=== PATIENT | female | born 1975 | race Caucasian/White ===

== ENCOUNTER → 2019-05-26 | Outpatient (CLI) | payer OTHER | END | disposition home or self-care (01) | LOC: LAB EV 16:45 → LAB SHORT 16:45 | DX: N76.0 Acute vaginitis (principal) | CPT/HCPCS: 87086 ==

== ENCOUNTER → 2019-06-04 | Outpatient (CLI) | payer OTHER | END | disposition home or self-care (01) | LOC: LAB EV 09:14 → LAB SHORT 09:14 | DX: N39.0 Urinary tract infection, site not specified (principal) | CPT/HCPCS: 87086 ==

== ENCOUNTER → 2019-09-27 | Outpatient (CLI) | payer SELFPAY ==
[2019-09-27 17:33] LABS: BASOPHILS ABSOLUTE AUTO 0.04 K/mm3 (0.00-0.23); BASOPHILS PERCENT AUTO 1 % (0-2); EOSINOPHILS ABSOLUTE AUTO 0.28 K/mm3 (0.00-0.68); EOSINOPHILS PERCENT AUTO 4 % (0-6); Hematocrit 41.4 % (33.0-51.0); Hemoglobin 14.2 g/dL (11.5-16.0); IMMATURE GRAN ABSOLUTE AUTO 0.01 K/mm3 (0.00-0.10); IMMATURE GRAN PERCENT AUTO 0 % (0-1); LYMPHOCYTES ABSOLUTE AUTO 1.78 K/mm3 (0.84-5.20); LYMPHOCYTES PERCENT AUTO 28 % (21-46); MONOCYTES ABSOLUTE AUTO 0.41 K/mm3 (0.16-1.47); MONOCYTES PERCENT AUTO 7 % (4-13); Mean Corpuscular HGB 31.3 pg (26.0-34.0); Mean Corpuscular HGB Conc 34.3 g/dL (31.5-36.5); Mean Corpuscular Volume 91 fL (80-100); Mean Platelet Volume 10.5 fL (9.1-12.4); NEUTROPHILS ABSOLUTE AUTO 3.82 K/mm3 (1.96-9.15); NEUTROPHILS PERCENT AUTO 60 % (41-73); Platelet Count 236 K/mm3 (150-400); RDW Coefficient Variation 12.5 % (11.7-14.2); RDW Standard Deviation 41.5 fL (35.1-46.3); Red Blood Cell Count 4.54 M/mm3 (3.80-5.20); White Blood Cell Count 6.34 K/mm3 (4.00-11.30)
[2019-09-27 17:53] LABS: Alanine Aminotransfer (ALT/SGP 19 U/L (12-78); Albumin/Globulin Ratio 1.3 (0.8-1.8); Alk Phos 52 U/L (40-126); Anion Gap 7 mmol/L (6-16); Aspartate Aminotrans (AST/SGOT 14 U/L (12-37); Bilirubin, Total 0.6 mg/dL (0.1-1.0); Blood Urea Nitrogen 17 mg/dL (8-24); CO2, Blood 28 mmol/L (21-32); Chloride, Blood 104 mmol/L (98-108); Creatinine, Blood 0.68 mg/dL (0.40-1.00); Globulin, Blood 3.2 g/dL (2.2-4.0); Glomerular Filtration Rate >60 (60-); Glucose, Blood 91 mg/dL (70-99); Potassium, Blood 4.2 mmol/L (3.5-5.5); Sodium, Blood 139 mmol/L (136-145); Thyroid Stimulating Hormone 1.424 uIU/mL (0.360-4.800); Total Protein, Blood 7.2 g/dL (6.4-8.2)
== END | disposition home or self-care (01) ==
LOC: LAB SHORT 17:29 → LAB EV 17:29
PROVIDERS: Physician Assistant
DX: R53.83 Other fatigue (principal); R42 Dizziness and giddiness
CPT/HCPCS: 80053; 84443; 85025

== ENCOUNTER → 2019-10-06 | Outpatient (CLI) | payer BC ==
[2019-10-06 12:51] LABS: Alanine Aminotransfer (ALT/SGP 23 U/L (12-78); Albumin, Blood 3.9 g/dL (3.4-5.0); Albumin/Globulin Ratio 1.2 (0.8-1.8); Alk Phos 51 U/L (40-126); Anion Gap 7 mmol/L (6-16); Aspartate Aminotrans (AST/SGOT 19 U/L (12-37); Bilirubin, Total 0.5 mg/dL (0.1-1.0); Blood Urea Nitrogen 8 mg/dL (8-24); Bun/Creatinine Ratio 11.8 (12.0-20.0); CO2, Blood 26 mmol/L (21-32); Chloride, Blood 106 mmol/L (98-108); Creatinine, Blood 0.68 mg/dL (0.40-1.00); Globulin, Blood 3.3 g/dL (2.2-4.0); Glomerular Filtration Rate >60 (60-); Glucose, Blood 87 mg/dL (70-99); Sodium, Blood 139 mmol/L (136-145); Total Protein, Blood 7.2 g/dL (6.4-8.2)
[2019-10-10 13:07] LABS: VITAMIN E(ALPHA TOCOPHEROL) 8.2 mg/L (7.0-25.1); VITAMIN E(GAMMA TOCOPHEROL) 1.6 mg/L (0.5-5.5)
== END | disposition home or self-care (01) ==
LOC: LAB SHORT 12:34 → LAB EV 12:34
PROVIDERS: Physician Assistant
DX: Z48.815 Encounter for surgical aftercare following surgery on the digestive system (principal); Z98.84 Bariatric surgery status
CPT/HCPCS: 80053; 82306; 82607; 82728; 83540; 83550

== ENCOUNTER → 2019-11-29 | Outpatient (CLI) | payer BC | END | disposition home or self-care (01) | LOC: LAB SHORT 18:00 → LAB EV 18:00 | DX: R30.9 Painful micturition, unspecified (principal) | CPT/HCPCS: 87086 ==

== ENCOUNTER 2020-08-16 19:26 | Emergency (ER) | payer OTHER, BC ==
[~2020-08-16] VITALS: Ht 172.7 cm; Wt 90.7 kg
[2020-08-16] MEDS ORDERED: HYDROCODONE-AC1 EAC7 PO (19:37)
[2020-08-16] MEDS ORDERED: Methocarbamol750 MG PO (19:37)
[2020-08-16] MEDS ORDERED: NEURONTIN300 MG PO (19:37)
== END 2020-08-16 21:49 | disposition home or self-care (01) ==
LOC: ER 19:26
DX: S06.0X0A Concussion without loss of consciousness, initial encounter (principal); W22.03XA Walked into furniture, initial encounter; Y92.89 Other specified places as the place of occurrence of the external cause; Y99.0 Civilian activity done for income or pay
CPT/HCPCS: 70450; 72125; 99284-25

== ENCOUNTER → 2022-12-20 | Outpatient (CLI) | payer BC ==
[~2022-12-20] MED LIST: HYDROCODONE-AC1 EAC7 PO; Methocarbamol750 MG PO; NEURONTIN300 MG PO
[2022-12-20 15:18] LABS: BASOPHILS ABSOLUTE AUTO 0.06 K/mm3 (0.00-0.23); BASOPHILS PERCENT AUTO 1 % (0-2); EOSINOPHILS ABSOLUTE AUTO 0.27 K/mm3 (0.00-0.68); EOSINOPHILS PERCENT AUTO 3 % (0-6); Hematocrit 39.3 % (33.0-51.0); Hemoglobin 12.9 g/dL (11.5-16.0); IMMATURE GRAN ABSOLUTE AUTO 0.01 K/mm3 (0.00-0.10); IMMATURE GRAN PERCENT AUTO 0 % (0-1); LYMPHOCYTES ABSOLUTE AUTO 1.75 K/mm3 (0.84-5.20); LYMPHOCYTES PERCENT AUTO 21 % (21-46); MONOCYTES PERCENT AUTO 6 % (4-13); Mean Corpuscular HGB Conc 32.8 g/dL (31.5-36.5); Mean Corpuscular Volume 85 fL (80-100); Mean Platelet Volume 10.6 fL (9.1-12.4); NEUTROPHILS ABSOLUTE AUTO 5.62 K/mm3 (1.96-9.15); NEUTROPHILS PERCENT AUTO 69 % (41-73); Platelet Count 262 K/mm3 (150-400); RDW Coefficient Variation 13.2 % (11.7-14.2); RDW Standard Deviation 40.9 fL (35.1-46.3); Red Blood Cell Count 4.61 M/mm3 (3.80-5.20); White Blood Cell Count 8.21 K/mm3 (4.00-11.30)
[2022-12-20 15:31] LABS: Albumin/Globulin Ratio 1.2 (0.8-1.8); Bilirubin, Total 0.5 mg/dL (0.1-1.0); Bun/Creatinine Ratio 11.2 (12.0-20.0); Calcium, Blood 9.3 mg/dL (8.5-10.1); Creatinine, Blood 0.89 mg/dL (0.40-1.00); Globulin, Blood 3.4 g/dL (2.2-4.0); Potassium, Blood 4.4 mmol/L (3.5-5.5); Total Protein, Blood 7.4 g/dL (6.4-8.2)
== END ==
LOC: LAB SHORT 15:14
PROVIDERS: Chiropractor
DX: R10.9 Unspecified abdominal pain (principal); N39.0 Urinary tract infection, site not specified
CPT/HCPCS: 80053; 85025; 87086

== ENCOUNTER → 2022-12-31 | Outpatient (CLI) | payer BC ==
[2023-01-01 11:03] LABS: G. vaginalis (DNA Probe) Negative (NEGATIVE); T. vaginalis (DNA Probe) Negative (NEGATIVE)
[2023-01-01 11:04] LABS: Candida species (DNA Probe) Positive (NEGATIVE)
== END | disposition home or self-care (01) ==
LOC: LAB SHORT 17:26 → LAB 17:26
PROVIDERS: Advanced Practice Midwife
DX: N76.0 Acute vaginitis (principal)
CPT/HCPCS: 87480; 87510; 87660

== ENCOUNTER → 2023-03-06 | Outpatient (CLI) | payer BC | LOC: LAB SHORT 17:36 → LAB 17:36 | DX: N39.0 Urinary tract infection, site not specified (principal) | CPT/HCPCS: 87086 ==

== ENCOUNTER 2023-08-22 19:36 | Emergency (ER) | payer BC ==
[~2023-08-22] VITALS: Ht 175.3 cm; Wt 95.2 kg
[2023-08-22 19:57] VITALS: BP 124/62
[2023-08-22 20:54] LABS: BASOPHILS ABSOLUTE AUTO 0.03 K/mm3 (0.00-0.23); BASOPHILS PERCENT AUTO 0 % (0-2); EOSINOPHILS ABSOLUTE AUTO 0.18 K/mm3 (0.00-0.68); EOSINOPHILS PERCENT AUTO 3 % (0-6); Hematocrit 38.2 % (33.0-51.0); IMMATURE GRAN ABSOLUTE AUTO 0.01 K/mm3 (0.00-0.10); IMMATURE GRAN PERCENT AUTO 0 % (0-1); LYMPHOCYTES ABSOLUTE AUTO 1.64 K/mm3 (0.84-5.20); LYMPHOCYTES PERCENT AUTO 23 % (21-46); MONOCYTES ABSOLUTE AUTO 0.53 K/mm3 (0.16-1.47); MONOCYTES PERCENT AUTO 8 % (4-13); Mean Corpuscular HGB 27.7 pg (26.0-34.0); Mean Corpuscular HGB Conc 31.4 g/dL (31.5-36.5); Mean Corpuscular Volume 88 fL (80-100); Mean Platelet Volume 10.5 fL (9.1-12.4); NEUTROPHILS ABSOLUTE AUTO 4.62 K/mm3 (1.96-9.15); NEUTROPHILS PERCENT AUTO 66 % (41-73); Platelet Count 251 K/mm3 (150-400); RDW Coefficient Variation 14.1 % (11.7-14.2); RDW Standard Deviation 45.3 fL (35.1-46.3); Red Blood Cell Count 4.33 M/mm3 (3.80-5.20); White Blood Cell Count 7.01 K/mm3 (4.00-11.30)
[2023-08-22 20:59] LABS: Albumin, Blood 3.9 g/dL (3.4-5.0); Albumin/Globulin Ratio 1.2 (0.8-1.8); Bilirubin, Total 0.4 mg/dL (0.1-1.0); Bun/Creatinine Ratio 23.5 (12.0-20.0); Calcium, Blood 8.7 mg/dL (8.5-10.1); Creatinine, Blood 0.72 mg/dL (0.40-1.00); Globulin, Blood 3.2 g/dL (2.2-4.0); Potassium, Blood 4.2 mmol/L (3.5-5.5); Total Protein, Blood 7.1 g/dL (6.4-8.2)
[2023-08-22 23:03] LABS: Source, Urine Clean Catch
[2023-08-22 23:05] LABS: Bilirubin, Urine Neg (Neg); Blood, Urine 1+ (Neg); Glucose Qualitative, Urine Neg (Neg); Ketones, Urine Neg (Neg); Leukocyte Esterase, Urine Neg (Neg); Nitrite, Urine Neg (Neg); Protein, Urine 1+ (Neg); Urobilinogen, Urine 1+ (Normal)
[2023-08-22 23:08] LABS: Appearance, Urine Clear (Clear); Color, Urine Yellow (P-Yellow)
[2023-08-22 23:13] LABS: Bacteria Not Seen /hpf; White Blood Cells, Urine Not Seen /hpf (0-5)
[2023-08-22 23:14] LABS: Squamous Epithelial Cells Rare /hpf (Few)
[2023-08-22] MEDS ORDERED: PHENA200 PO (23:44)
== END 2023-08-23 00:04 | disposition home or self-care (01) ==
LOC: ER 19:36
PROVIDERS: Emergency Medicine; Physician Assistant
DX: R10.11 Right upper quadrant pain (principal); R39.11 Hesitancy of micturition
CPT/HCPCS: 51798; 74177; 80053; 81001; 85025; 96374-59; 96375; 99284-25; A9270; J1170; J1885; J2405; Q9967

== ENCOUNTER → 2024-10-15 | Outpatient (CLI) | payer OTHER ==
[~2024-10-15] MED LIST changes: +PHENA200 PO
[2024-10-16 10:38] LABS: Influenza A, PCR NEGATIVE (NEGATIVE); Influenza B, PCR NEGATIVE (NEGATIVE); Resp Syncytial Virus, PCR NEGATIVE (NEGATIVE); SARS-Cov-2 (COVID-19) PCR, MMC NEGATIVE (NEGATIVE)
== END ==
LOC: LAB 11:00 → LAB SHORT 11:00
PROVIDERS: Nurse Practitioner Family
DX: J01.90 Acute sinusitis, unspecified (principal); R11.0 Nausea
CPT/HCPCS: 0241U

== ENCOUNTER 2024-10-30 02:31 | Emergency (ER) | payer OTHER ==
[~2024-10-30] VITALS: Ht 175.3 cm; Wt 95.2 kg
[2024-10-30] MEDS ORDERED: Albuterol 2.5 MG/3 ML VIAL INH SCH (02:40)
[2024-10-30] MEDS ORDERED: Morphine Sulfate 4 MG/1 ML Injection IV ONE (02:40)
[2024-10-30 03:03] LABS: Base Excess Venous 2.1 mmol/L; Bicarbonate Venous 25.4 mmol/L (24.0-30.0); PCO2 Venous 38.6 mmHg (38-42); pH Blood Venous 7.44 (7.34-7.37)
[2024-10-30] MEDS ORDERED: HYDROmorphone HCl/Pf 1MG SYR IV PRN (03:05)
[2024-10-30 03:18] LABS: BASOPHILS ABSOLUTE AUTO 0.01 K/mm3 (0.00-0.23); BASOPHILS PERCENT AUTO 0 % (0-2); EOSINOPHILS ABSOLUTE AUTO 0.03 K/mm3 (0.00-0.68); EOSINOPHILS PERCENT AUTO 0 % (0-6); Hematocrit 38.5 % (33.0-51.0); Hemoglobin 11.6 g/dL (11.5-16.0); IMMATURE GRAN ABSOLUTE AUTO 0.04 K/mm3 (0.00-0.10); IMMATURE GRAN PERCENT AUTO 0 % (0-1); LYMPHOCYTES ABSOLUTE AUTO 2.05 K/mm3 (0.84-5.20); LYMPHOCYTES PERCENT AUTO 19 % (21-46); MONOCYTES ABSOLUTE AUTO 0.53 K/mm3 (0.16-1.47); MONOCYTES PERCENT AUTO 5 % (4-13); Mean Corpuscular HGB 23.2 pg (26.0-34.0); Mean Corpuscular HGB Conc 30.1 g/dL (31.5-36.5); Mean Corpuscular Volume 77 fL (80-100); Mean Platelet Volume 10.2 fL (9.1-12.4); NEUTROPHILS ABSOLUTE AUTO 8.22 K/mm3 (1.96-9.15); NEUTROPHILS PERCENT AUTO 76 % (41-73); Platelet Count 339 K/mm3 (150-400); RDW Coefficient Variation 14.9 % (11.7-14.2); RDW Standard Deviation 41.4 fL (35.1-46.3); Red Blood Cell Count 4.99 M/mm3 (3.80-5.20); White Blood Cell Count 10.88 K/mm3 (4.00-11.30)
[2024-10-30 03:40] LABS: Albumin, Blood 3.8 g/dL (3.4-5.0); Albumin/Globulin Ratio 1.1 (0.8-1.8); Bun/Creatinine Ratio 23.4 (12.0-20.0); Calcium, Blood 9.2 mg/dL (8.5-10.1); Creatinine, Blood 0.68 mg/dL (0.40-1.00); Globulin, Blood 3.6 g/dL (2.2-4.0); Potassium, Blood 3.3 mmol/L (3.5-5.5); Total Protein, Blood 7.4 g/dL (6.4-8.2)
[2024-10-30] MEDS ORDERED: Ondansetron HCl 2 MG / ML 2ML Vial IV ONE (04:25)
[2024-10-30] MEDS ORDERED: Pantoprazole Sodium 40 MG Injection IV ONE (05:25)
[2024-10-30] MEDS ORDERED: Mag Hydrox/AL Hydrox/Simeth 30 ML UDC PO ONE (05:25)
[2024-10-30] MEDS ORDERED: Lidocaine 2% Viscous Soln 15 ML UDC PO ONE (05:25)
[2024-10-30 05:50] LABS: Source, Urine Clean Catch
[2024-10-30 05:58] LABS: Bilirubin, Urine Neg (Neg); Blood, Urine 3+ (Neg); Glucose Qualitative, Urine Neg (Neg); Ketones, Urine 1+ (Neg); Leukocyte Esterase, Urine Neg (Neg); Nitrite, Urine Neg (Neg); Protein, Urine 2+ (Neg); Urobilinogen, Urine 1+ (Normal)
[2024-10-30 06:05] LABS: Color, Urine Yellow (P-Yellow)
[2024-10-30 06:07] LABS: Appearance, Urine Clear (Clear)
[2024-10-30 06:08] LABS: Bacteria Few /hpf; Red Blood Cells, Urine 0-2 /hpf (0-2); Squamous Epithelial Cells Many /hpf (Few); White Blood Cells, Urine 0-2 /hpf (0-5)
[2024-10-30 06:09] LABS: Calcium Oxalate Crystals Mod /hpf
[2024-10-30] MEDS ORDERED: DICY20 PO (10:35)
[2024-10-30] MEDS ORDERED: METO10 PO (10:35)
[2024-10-30 10:47] VITALS: BP 115/55
== END 2024-10-30 10:47 | disposition home or self-care (01) ==
LOC: ER 02:31
PROVIDERS: Emergency Medicine
DX: R10.10 Upper abdominal pain, unspecified (principal); Z79.891 Long term (current) use of opiate analgesic; Z79.899 Other long term (current) drug therapy
CPT/HCPCS: 71045; 71260; 74177; 80053; 81001; 82803; 83605; 83690; 84484; 85025; 94640; 94664; 96374-59; 96375; 96376; 99285-25; A9270; J1171; J2270; J2405; J2470; Q9967

== ENCOUNTER 2024-11-23 01:41 | Observation (INO) | payer OTHER ==
[~2024-11-23 01:41] MED LIST changes: +DICY20 PO; +METO10 PO
[2024-11-23] MEDS ORDERED: NS 1,000 ML IV SCH (01:55)
[2024-11-23] MEDS ORDERED: Ketorolac Tromethamine 30mg Vial IV ONE (01:55)
[2024-11-23] MEDS ORDERED: Ondansetron HCl 2 MG / ML 2ML Vial IV ONE (01:55)
[2024-11-23 02:00] LABS: BASOPHILS ABSOLUTE AUTO 0.04 K/mm3 (0.00-0.23); BASOPHILS PERCENT AUTO 0 % (0-2); EOSINOPHILS ABSOLUTE AUTO 0.24 K/mm3 (0.00-0.68); EOSINOPHILS PERCENT AUTO 3 % (0-6); Hematocrit 36.4 % (33.0-51.0); Hemoglobin 10.9 g/dL (11.5-16.0); IMMATURE GRAN ABSOLUTE AUTO 0.03 K/mm3 (0.00-0.10); IMMATURE GRAN PERCENT AUTO 0 % (0-1); LYMPHOCYTES ABSOLUTE AUTO 0.96 K/mm3 (0.84-5.20); LYMPHOCYTES PERCENT AUTO 10 % (21-46); MONOCYTES ABSOLUTE AUTO 0.43 K/mm3 (0.16-1.47); MONOCYTES PERCENT AUTO 5 % (4-13); Mean Corpuscular HGB Conc 29.9 g/dL (31.5-36.5); Mean Corpuscular Volume 77 fL (80-100); Mean Platelet Volume 9.5 fL (9.1-12.4); NEUTROPHILS ABSOLUTE AUTO 7.87 K/mm3 (1.96-9.15); NEUTROPHILS PERCENT AUTO 82 % (41-73); Platelet Count 343 K/mm3 (150-400); RDW Coefficient Variation 16.1 % (11.7-14.2); RDW Standard Deviation 45.4 fL (35.1-46.3); Red Blood Cell Count 4.74 M/mm3 (3.80-5.20); White Blood Cell Count 9.57 K/mm3 (4.00-11.30)
[2024-11-23 02:20] LABS: Albumin, Blood 3.7 g/dL (3.4-5.0); Albumin/Globulin Ratio 1.1 (0.8-1.8); Bilirubin, Total 0.6 mg/dL (0.1-1.0); Calcium, Blood 8.8 mg/dL (8.5-10.1); Creatinine, Blood 0.87 mg/dL (0.40-1.00); Globulin, Blood 3.5 g/dL (2.2-4.0); Total Protein, Blood 7.2 g/dL (6.4-8.2)
[2024-11-23] MEDS ORDERED: FentaNYL Citrate 50 MCG/ML 2 ML Injection IV PRN (02:20)
[2024-11-23 02:41] LABS: Source, Urine Clean Catch
[2024-11-23 02:46] LABS: Bilirubin, Urine Neg (Neg); Blood, Urine 5+ (Neg); Glucose Qualitative, Urine Neg (Neg); Ketones, Urine Neg (Neg); Leukocyte Esterase, Urine Neg (Neg); Nitrite, Urine Neg (Neg); Protein, Urine 2+ (Neg); Urobilinogen, Urine NORM (Normal)
[2024-11-23 02:57] LABS: Appearance, Urine Hazy (Clear); Color, Urine Yellow (P-Yellow)
[2024-11-23 02:58] LABS: Amorphous Light (0-Heavy); Bacteria Rare /hpf; Calcium Oxalate Crystals Mod /hpf; Red Blood Cells, Urine TNTC /hpf (0-2); Squamous Epithelial Cells Few /hpf (Few); White Blood Cells, Urine 0-2 /hpf (0-5)
[2024-11-23] MEDS ORDERED: HYDROmorphone HCl/Pf 1MG SYR IV PRN (03:10)
[2024-11-23] MEDS ORDERED: Naloxone HCl 0.4MG / ML 1ML Vial IV PRN (04:35)
[2024-11-23] MEDS ORDERED: Ondansetron HCl 2 MG / ML 2ML Vial IV PRN (04:35)
[2024-11-23] MEDS ORDERED: FLU VACC TS2024-25(6MOS UP)/PF 45 MCG/0.5 ML SYRINGE IM ONE (04:35)
[2024-11-23] MEDS ORDERED: Acetaminophen 325 MG TABLET PO PRN (04:40)
[2024-11-23] MEDS ORDERED: DEXTROAMPHETAMI10 M5 PO (05:10)
[2024-11-23] MEDS ORDERED: TAMSULOSIN HCL0.4 M1 PO (05:11)
[2024-11-23] MEDS ORDERED: TRAZ50 PO (05:13)
[2024-11-23] MEDS ORDERED: Ketorolac Tromethamine 15mg Vial IV PRN (05:35)
[2024-11-23 06:00] LABS: BASOPHILS ABSOLUTE AUTO 0.02 K/mm3 (0.00-0.23); BASOPHILS PERCENT AUTO 0 % (0-2); EOSINOPHILS ABSOLUTE AUTO 0.02 K/mm3 (0.00-0.68); EOSINOPHILS PERCENT AUTO 0 % (0-6); Hemoglobin 9.3 g/dL (11.5-16.0); IMMATURE GRAN ABSOLUTE AUTO 0.04 K/mm3 (0.00-0.10); IMMATURE GRAN PERCENT AUTO 1 % (0-1); LYMPHOCYTES ABSOLUTE AUTO 0.81 K/mm3 (0.84-5.20); LYMPHOCYTES PERCENT AUTO 9 % (21-46); MONOCYTES PERCENT AUTO 3 % (4-13); Mean Corpuscular HGB 23.1 pg (26.0-34.0); Mean Corpuscular Volume 77 fL (80-100); Mean Platelet Volume 9.9 fL (9.1-12.4); NEUTROPHILS ABSOLUTE AUTO 7.62 K/mm3 (1.96-9.15); NEUTROPHILS PERCENT AUTO 87 % (41-73); Platelet Count 274 K/mm3 (150-400); RDW Coefficient Variation 16.3 % (11.7-14.2); RDW Standard Deviation 45.5 fL (35.1-46.3); Red Blood Cell Count 4.02 M/mm3 (3.80-5.20); White Blood Cell Count 8.81 K/mm3 (4.00-11.30)
[2024-11-23 06:22] LABS: Albumin, Blood 3.2 g/dL (3.4-5.0); Albumin/Globulin Ratio 1.1 (0.8-1.8); Bilirubin, Total 0.4 mg/dL (0.1-1.0); Bun/Creatinine Ratio 15.9 (12.0-20.0); Calcium, Blood 8.3 mg/dL (8.5-10.1); Creatinine, Blood 0.75 mg/dL (0.40-1.00); Globulin, Blood 2.9 g/dL (2.2-4.0); Magnesium, Blood 1.9 mg/dL (1.6-2.4); Potassium, Blood 4.1 mmol/L (3.5-5.5); Total Protein, Blood 6.1 g/dL (6.4-8.2)
[2024-11-23 06:26] LABS: Percent Saturation 3.3 % (15.0-50.0)
[2024-11-23 07:53] VITALS: BP 112/78
[2024-11-23] MEDS ORDERED: HYDROCODONE-AC1 EAC7 PO (08:08)
[2024-11-23] MEDS ORDERED: CYCL10 PO (08:12)
[2024-11-23] MEDS ORDERED: Tamsulosin HCl 0.4 MG Cap PO SCH (09:00)
[2024-11-23] MEDS ORDERED: Docusate Sodium 100 MG Cap PO SCH (09:00)
[2024-11-23 16:54] VITALS: BP 113/77
--- NOTE | 2024-11-23 18:06 | NUR ---
SHIFT SUMMARY: SINCE ARRIVAL TO PCU THIS AM PT HAS HAD NO SIGNIFICANT EVENTS HAPPEN. PT WAS MEDICATED FOR PAIN 2 TIMES OTHERWISE HAS SLEPT MOST OF THE SHIFT. PT HAS BEEN ABLE TO GET UP TO THE BATHROOM INDEPENDENTLY ALL DAY. HAS REMAINED A&OX4. FOLLOWS COMMANDS AND MAKES NEED KNOWN TO STAFF. WILL CONTINUE TO CARE FOR PT TILL END OF SHIFT.
--- NOTE | 2024-11-23 18:29 | NUR ---
AMA: PT NOTIFIED THIS RN THAT SHE IS FEELING BETTER AND THAT SHE WOULD LIKE TO GO HOME. PROVIDER NOTIIED AND TOLD THIS RN THAT PT WOULD HAVE TO LEAVE AMA OR WITH WILL THE MORNING WHEN HER PROVIDER IS HERE. PT GIVEN HER OPTIONS AND INFORMED ABOUT CONS OF LEAVING AMA. PT WOULD STILL LIKE TO LEAVE. AMA FORM SIGNED BY PT. BELONGING COLLECTED AND TAKEN HOME WITH PT.
[2024-11-24] MEDS ORDERED: Enoxaparin 40 MG/0.4 ML SYR SC SCH (09:00)
== END 2024-11-23 18:45 | disposition left against medical advice (07) ==
LOC: ER 01:41 → PCU 01:42 → ERHOLD 01:42 → PCU 07:43
PROVIDERS: Emergency Medicine; ADMIT Student in an Organized Health Care Education/Training Program
DX: N13.2 Hydronephrosis with renal and ureteral calculous obstruction (principal); D50.9 Iron deficiency anemia, unspecified; E16.2 Hypoglycemia, unspecified; Z79.899 Other long term (current) drug therapy; Z98.84 Bariatric surgery status
CPT/HCPCS: 74177; 80053; 81001; 82728; 83540; 83550; 83690; 83735; 85025; 96361; 96374-59; 96375; 96376; 99285-25; A9270; G0378; J1171; J1885; J2405; J3010; J7030; Q9967

== ENCOUNTER → 2025-03-10 | Outpatient (CLI) | payer OTHER ==
[~2025-03-10] MED LIST changes: +CEFPODOXIME PR100 MG PO; +CYCL10 PO; +DEXTROAMPHETAMI10 M5 PO; +DOCU100 PO; +FERSU300 PO; +Nitrofurantoin100 M1 PO; +OMEP20ER PO; +TAMSULOSIN HCL0.4 M1 PO; +TRAZ50 PO; +VALA500 PO; +VITAMIN D31000 UNI1 PO; +[UNRECOGNIZED DRUG - CODE] PO
[2025-03-10 15:23] LABS: Source, Urine Clean Catch
[2025-03-10 16:54] LABS: Color, Urine Amber (P-Yellow); Glucose Qualitative, Urine Neg (Neg); Ketones, Urine Neg (Neg); Leukocyte Esterase, Urine Neg (Neg); Protein, Urine 1+ (Neg); Specific Gravity, Urine 1.020 (1.003-1.022); Urobilinogen, Urine 2+ (Normal)
[2025-03-10 17:18] LABS: Bilirubin, Urine 1+ (Neg)
[2025-03-10 17:25] LABS: White Blood Cells, Urine 0-2 /hpf (0-5)
== END ==
LOC: LAB 15:21 → LAB SHORT 15:21
PROVIDERS: Advanced Practice Midwife
DX: R30.0 Dysuria (principal)
CPT/HCPCS: 81001

== ENCOUNTER 2025-03-11 23:02 | Observation (INO) | payer OTHER ==
[~2025-03-11] VITALS: Ht 175.3 cm; Wt 92.8 kg
[~2025-03-11 23:02] MED LIST changes: -CEFPODOXIME PR100 MG PO; -DOCU100 PO; -FERSU300 PO; -Nitrofurantoin100 M1 PO; -OMEP20ER PO; -VALA500 PO; -VITAMIN D31000 UNI1 PO; -[UNRECOGNIZED DRUG - CODE] PO
[2025-03-11] MEDS ORDERED: Ondansetron HCl 2 MG / ML 2ML Vial IV ONE (23:20)
[2025-03-11 23:37] LABS: BASOPHILS ABSOLUTE AUTO 0.04 K/mm3 (0.00-0.23); BASOPHILS PERCENT AUTO 1 % (0-2); EOSINOPHILS ABSOLUTE AUTO 0.12 K/mm3 (0.00-0.68); EOSINOPHILS PERCENT AUTO 2 % (0-6); Hematocrit 30.9 % (33.0-51.0); Hemoglobin 8.4 g/dL (11.5-16.0); IMMATURE GRAN ABSOLUTE AUTO 0.01 K/mm3 (0.00-0.10); IMMATURE GRAN PERCENT AUTO 0 % (0-1); LYMPHOCYTES ABSOLUTE AUTO 1.43 K/mm3 (0.84-5.20); LYMPHOCYTES PERCENT AUTO 22 % (21-46); MONOCYTES ABSOLUTE AUTO 0.47 K/mm3 (0.16-1.47); MONOCYTES PERCENT AUTO 7 % (4-13); Mean Corpuscular HGB Conc 27.2 g/dL (31.5-36.5); Mean Corpuscular Volume 72 fL (80-100); NEUTROPHILS ABSOLUTE AUTO 4.42 K/mm3 (1.96-9.15); NEUTROPHILS PERCENT AUTO 68 % (41-73); NRBC ABSOLUTE 0.00 K/mm3 (0.00-0.02); NRBC Auto 0.0 /100 WBC (0.0-0.2); Platelet Count 212 K/mm3 (150-400); RDW Coefficient Variation 18.7 % (11.7-14.2); RDW Standard Deviation 47.5 fL (35.1-46.3)
[2025-03-11 23:56] LABS: Alanine Aminotransfer (ALT/SGP 16.0 U/L (12-78); Albumin, Blood 3.7 g/dL (3.4-5.0); Albumin/Globulin Ratio 1.2 (0.8-1.8); Anion Gap 8.0 mmol/L (3-11); Aspartate Aminotrans (AST/SGOT 10.0 U/L (12-37); Bilirubin, Total 0.6 mg/dL (0.1-1.0); Blood Urea Nitrogen 14.0 mg/dL (8-24); CO2, Blood 25.0 mmol/L (21-32); Calcium, Blood 9.0 mg/dL (8.5-10.1); Chloride, Blood 109.0 mmol/L (98-108); Creatinine, Blood 0.85 mg/dL (0.40-1.00); Globulin, Blood 3.1 g/dL (2.2-4.0); Glucose, Blood 107.0 mg/dL (70-99); Potassium, Blood 3.7 mmol/L (3.5-5.5); Sodium, Blood 138.0 mmol/L (136-145); Total Protein, Blood 6.8 g/dL (6.4-8.2)
[2025-03-12 00:45] LABS: Source, Urine Clean Catch
[2025-03-12 00:55] LABS: Glucose Qualitative, Urine Neg (Neg); Ketones, Urine Neg (Neg); Leukocyte Esterase, Urine Neg (Neg); Protein, Urine 3+ (Neg); Specific Gravity, Urine 1.030 (1.003-1.022); Urobilinogen, Urine 1+ (Normal)
[2025-03-12 01:04] LABS: Bilirubin, Urine 2+ (Neg)
[2025-03-12] MEDS ORDERED: VALA500 PO (01:04)
[2025-03-12] MEDS ORDERED: Nitrofurantoin100 M1 PO (01:04)
[2025-03-12] MEDS ORDERED: OMEP20ER PO (01:04)
[2025-03-12] MEDS ORDERED: FERSU300 PO (01:05)
[2025-03-12 01:06] LABS: White Blood Cells, Urine 50-100 /hpf (0-5)
[2025-03-12 01:09] LABS: Yeast/Fungi Urine Mod /hpf
[2025-03-12 01:10] LABS: Color, Urine Brown (P-Yellow)
[2025-03-12] MEDS ORDERED: CefTRIAXone Sodium 1,000 MG in NS 100 ML IV ONE (02:00)
[2025-03-12] MEDS ORDERED: Ketorolac Tromethamine 30mg Vial IV ONE (02:25)
[2025-03-12] MEDS ORDERED: FentaNYL Citrate 50 MCG/ML 2 ML Injection IV ONE (02:25)
[2025-03-12] MEDS ORDERED: Morphine Sulfate 4 MG/1 ML Injection IV ONE (04:40)
[2025-03-12] MEDS ORDERED: Naloxone HCl 0.4MG / ML 1ML Vial IV PRN (05:00)
[2025-03-12] MEDS ORDERED: Ondansetron HCl 2 MG / ML 2ML Vial IV PRN (05:05)
[2025-03-12] MEDS ORDERED: FentaNYL Citrate 50 MCG/ML 2 ML Injection IV PRN (05:05)
[2025-03-12] MEDS ORDERED: Ketorolac Tromethamine 15mg Vial IV SCH (06:00)
[2025-03-12 08:02] VITALS: BP 110/63
[2025-03-12] MEDS ORDERED: Lactobacil 2-S.Thermo-Bifido 1 1 Cap PO SCH (09:00)
[2025-03-12 09:06] LABS: Hematocrit 27.9 % (33.0-51.0); Hemoglobin 7.6 g/dL (11.5-16.0)
[2025-03-12 09:33] LABS: Ferritin, Serum 12.0 ng/mL (8-252); Total Iron Binding Capacity 352.0 ug/dL (250-450)
--- NOTE | 2025-03-12 09:39 | NUR ---
pt arrived to 361 via wheelchair, a/ox4, a bit slow to answer, states she recieved pain meds in ED, lungs are clear t/o, resp even and unlabored, no cough noted, on r/a, hrr, no edema noted, ppp+faint, cap refill<3 sec, vs stable, afebrile, piv to rac site is clear and patent, btx4 abd flat soft tender from pubic area that wraps around to the right flank, reports a bit of diff with voids, states she has to push it out, skin c/w/d, had recent knee replacements, corina white, oriented to room layout and call system, call light in reach. recieved orders from Dr. Branham for diet.
--- NOTE | 2025-03-12 10:05 | NUR ---
pt reports pain 7/10, has bad bladder spasms with voids, 25mcg fentanly given for pain relief, warm blanket given for comfort. call light in reach.
[2025-03-12] MEDS ORDERED: Sod Ferric Gluc Complx/Sucrose 125 MG in NS 100 ML IV SCH (11:42)
[2025-03-12] MEDS ORDERED: NS 250 ML IV PRN (12:05)
[2025-03-12 15:33] VITALS: BP 105/64
--- NOTE | 2025-03-12 18:11 | NUR ---
pt states still has a lot of pain, just administered toradol, states she still feels like she has to push urine out, but is clearing up, has slept most of the day, as she was up all night last night, call light in reach.
[2025-03-12] MEDS ORDERED: Cholecalciferol 1000 Unit Tablet (=25MCG) PO SCH (19:35)
[2025-03-12 19:54] VITALS: BP 114/79
[2025-03-12] MEDS ORDERED: Multivitamins-Minerals Liquid 15 ML Oral Syringe PO SCH (21:00)
[2025-03-13 04:50] VITALS: BP 122/70
--- NOTE | 2025-03-13 05:42 | NUR ---
SHIFT SUMMARY: Pt is admitted for partial SBO and is a full code. Is alert and able to make needs known. ADLs have been IND. Pain has been managed with PRN medications. Iv to left AC is patent with dressing that is CDI.
[2025-03-13 07:31] VITALS: BP 130/78
--- NOTE | 2025-03-13 07:35 | NUR ---
pt laying in bed with eyes closed, is very sleepy this am, a/ox4, pleasant and cooperative with care, follows commands well, reports pain is better this am, down to a 3/10, lungs are clear t/o, resp even and unlabored, no cough noted, on r/a, hrr, no edema noted, piv to rac site is clear and patent, btx4, abd flat soft tender in lower abd that radiates around to r flank, voids with some effort, but is getting better and urine is clearing, skin c/w/d, christopher, corina, call light in reach.
[2025-03-13] MEDS ORDERED: CefTRIAXone Sodium 1,000 MG in NS 100 ML IV SCH (09:00)
[2025-03-13] MEDS ORDERED: Cholecalciferol 1000 Unit Tablet (=25MCG) PO SCH (11:00)
[2025-03-13 11:43] LABS: BASOPHILS ABSOLUTE AUTO 0.03 K/mm3 (0.00-0.23); BASOPHILS PERCENT AUTO 1 % (0-2); EOSINOPHILS ABSOLUTE AUTO 0.11 K/mm3 (0.00-0.68); EOSINOPHILS PERCENT AUTO 2 % (0-6); Hematocrit 32.3 % (33.0-51.0); Hemoglobin 8.6 g/dL (11.5-16.0); IMMATURE GRAN ABSOLUTE AUTO 0.02 K/mm3 (0.00-0.10); IMMATURE GRAN PERCENT AUTO 0 % (0-1); LYMPHOCYTES ABSOLUTE AUTO 1.40 K/mm3 (0.84-5.20); LYMPHOCYTES PERCENT AUTO 22 % (21-46); MONOCYTES ABSOLUTE AUTO 0.49 K/mm3 (0.16-1.47); MONOCYTES PERCENT AUTO 8 % (4-13); Mean Corpuscular HGB Conc 26.6 g/dL (31.5-36.5); Mean Corpuscular Volume 73 fL (80-100); NEUTROPHILS ABSOLUTE AUTO 4.31 K/mm3 (1.96-9.15); NEUTROPHILS PERCENT AUTO 68 % (41-73); NRBC ABSOLUTE 0.00 K/mm3 (0.00-0.02); NRBC Auto 0.0 /100 WBC (0.0-0.2); Platelet Count 280 K/mm3 (150-400); RDW Coefficient Variation 19.3 % (11.7-14.2); RDW Standard Deviation 48.1 fL (35.1-46.3)
[2025-03-13 12:03] LABS: Alanine Aminotransfer (ALT/SGP 15.0 U/L (12-78); Albumin, Blood 3.3 g/dL (3.4-5.0); Albumin/Globulin Ratio 1.1 (0.8-1.8); Anion Gap 7.0 mmol/L (3-11); Aspartate Aminotrans (AST/SGOT 10.0 U/L (12-37); Bilirubin, Total 0.5 mg/dL (0.1-1.0); Blood Urea Nitrogen 8.0 mg/dL (8-24); CO2, Blood 27.0 mmol/L (21-32); Calcium, Blood 9.0 mg/dL (8.5-10.1); Chloride, Blood 112.0 mmol/L (98-108); Creatinine, Blood 0.78 mg/dL (0.40-1.00); Globulin, Blood 3.1 g/dL (2.2-4.0); Glucose, Blood 88.0 mg/dL (70-99); Potassium, Blood 3.7 mmol/L (3.5-5.5); Sodium, Blood 142.0 mmol/L (136-145); Total Protein, Blood 6.4 g/dL (6.4-8.2)
[2025-03-13] MEDS ORDERED: [UNRECOGNIZED DRUG - CODE] PO (14:01)
[2025-03-13] MEDS ORDERED: DOCU100 PO (14:02)
[2025-03-13] MEDS ORDERED: PHENA200 PO (14:03)
[2025-03-13] MEDS ORDERED: VITAMIN D31000 UNI1 PO (14:03)
[2025-03-13] MEDS ORDERED: CEFPODOXIME PR100 MG PO (14:04)
--- NOTE | 2025-03-13 14:42 | NUR ---
Pt has been discharged to home, piv removed intact, new medications [facility], went over discharge instructions with her, she verbalized understanding, left via wheelchair with all her belongings with wire weaver in attendence.
== END 2025-03-13 14:27 | disposition home or self-care (01) ==
LOC: ER 23:02 → MEDS 23:03 → ERHOLD 23:03 → MEDS 03-12 07:53
PROVIDERS: Internal Medicine; Student in an Organized Health Care Education/Training Program; ADMIT Student in an Organized Health Care Education/Training Program
DX: K56.600 Partial intestinal obstruction, unspecified as to cause (principal); N39.0 Urinary tract infection, site not specified; N20.0 Calculus of kidney; D50.9 Iron deficiency anemia, unspecified; F41.9 Anxiety disorder, unspecified; M51.369 Other intervertebral disc degeneration, lumbar region without mention of lumbar back pain or lower extremity pain; Z79.899 Other long term (current) drug therapy; Z98.84 Bariatric surgery status
CPT/HCPCS: 36415; 74177; 76770; 80053; 81001; 82728; 83540; 83550; 85014; 85018; 85025; 87086; 96365-59; 96366; 96367; 96375; 96376; 99285-25; A9270; G0378; J0696; J1885; J2270; J2405; J2916; J3010; J7050; J7120; Q9967

== ENCOUNTER → 2025-03-31 | Outpatient (CLI) | payer OTHER ==
[~2025-03-31] MED LIST changes: +CEFPODOXIME PR100 MG PO; +DOCU100 PO; +FERSU300 PO; +Nitrofurantoin100 M1 PO; +OMEP20ER PO; +VALA500 PO; +VITAMIN D31000 UNI1 PO; +[UNRECOGNIZED DRUG - CODE] PO
[2025-03-31 18:25] LABS: U Amphetamine Screen Not Detected; U Barbituate Screen Not Detected; U Benzodiazapine Screen Not Detected; U Buprenorphine Screen Not Detected; U Cannabinoids Screen Not Detected; U Cocaine Screen Not Detected; U Methadone Screen Not Detected; U Methamphetamine Screen Not Detected; U Opiates Screen DETECTED; U Phencyclidine Screen Not Detected
[2025-03-31 18:26] LABS: U Oxycodone Screen DETECTED
== END ==
LOC: LAB 16:58 → LAB SHORT 16:58
PROVIDERS: Nurse Practitioner Family
DX: Z51.81 Encounter for therapeutic drug level monitoring (principal); Z79.891 Long term (current) use of opiate analgesic

== ENCOUNTER → 2025-05-10 | Outpatient (CLI) | payer OTHER ==
[2025-05-10 14:12] LABS: Candida glabrata-krusei, PCR NOT DETECTED (NOT DETECT)
[2025-05-10 14:13] LABS: Bacterial Vaginosis PCR Positive (NEGATIVE); Candida Group, PCR DETECTED (NOT DETECT)
== END ==
LOC: LAB 10:50 → LAB SHORT 10:50
PROVIDERS: Advanced Practice Midwife
DX: N76.0 Acute vaginitis (principal); R82.90 Unspecified abnormal findings in urine
CPT/HCPCS: 81515; 87077; 87086; 87186

== ENCOUNTER 2025-07-25 10:41 | Day surgery (SDC) | payer OTHER ==
[~2025-07-25] VITALS: Ht 175.3 cm; Wt 88.8 kg
--- NOTE | 2025-07-25 11:44 | NUR ---
07/25/25 1144 Eleanor,Audrey 2 IV ATTEMPS BY DLB ONE IN THE RH AND RT FOREARM 1 SUCCESSFUL ATTEMPT IN THE LH [place]
[2025-07-25 16:07] VITALS: BP 124/79
== END 2025-07-25 14:15 | disposition home or self-care (01) ==
LOC: ORSCSDS 10:41
PROVIDERS: Specialist
PROC: 0DB68ZX Excision of Stomach, Via Natural or Artificial Opening Endoscopic, Diagnostic (ICD-10-PCS; principal; 2025-07-25 13:00)
PROC: 0DBH8ZX Excision of Cecum, Via Natural or Artificial Opening Endoscopic, Diagnostic (ICD-10-PCS; principal; 2025-07-25 13:00)
PROC: 0DB58ZX Excision of Esophagus, Via Natural or Artificial Opening Endoscopic, Diagnostic (ICD-10-PCS; principal; 2025-07-25 13:00)
DX: R13.10 Dysphagia, unspecified (principal); K25.9 Gastric ulcer, unspecified as acute or chronic, without hemorrhage or perforation; R10.13 Epigastric pain; Z12.11 Encounter for screening for malignant neoplasm of colon; K63.5 Polyp of colon; Z98.84 Bariatric surgery status; Z79.899 Other long term (current) drug therapy; Z87.891 Personal history of nicotine dependence
CPT/HCPCS: 88305; 88342; J2704; J7120

== ENCOUNTER → 2025-08-24 | Outpatient (CLI) | payer OTHER ==
[2025-08-24 15:01] LABS: Bacterial Vaginosis PCR Negative (NEGATIVE); Candida Group, PCR NOT DETECTED (NOT DETECT)
[2025-08-24 15:02] LABS: Candida glabrata-krusei, PCR DETECTED (NOT DETECT)
== END | disposition home or self-care (01) ==
LOC: LAB SHORT 12:08
DX: N89.8 Other specified noninflammatory disorders of vagina (principal)
CPT/HCPCS: 81515